=== PATIENT | female | born 1970 | race Caucasian/White ===

== ENCOUNTER 2017-03-06 06:13 | Observation (INO) ==
[2017-03-06 07:13] LABS: Basophils % 0.6 %; Eosinophils # 0.1 K/mcL (0.0-0.6); Eosinophils % 1.2 %; Hematocrit 40.4 % (35.3-44.9); Hemoglobin 13.4 g/dL (11.5-15.4); Immature Granulocytes % 0.6 % (0-4); Lymphocytes # 2.2 K/mcL (0.6-4.6); Lymphocytes % 32.5 %; Mean Corpuscular HGB Conc 33.2 g/dL (31.6-35.5); Mean Corpuscular Hemoglobin 31.8 pg (28.0-33.3); Mean Corpuscular Volume 95.7 fL (83.0-100.0); Mean Platelet Volume 11.4 fL (9.4-12.4); Monocytes # 0.6 K/mcL (0.0-1.3); Monocytes % 8.2 %; Neutrophils # 3.9 K/mcL (1.6-8.9); Platelet Count 185 K/mcL (140-400); Red Blood Count 4.22 M/mcL (3.82-4.97); Red Cell Distribution Width 12.1 % (11.5-14.5); Segmented Neutrophils % 56.9 %
[2017-03-06 07:14] LABS: Alanine Aminotransferase 15 Units/L (0-55); Albumin 4.1 g/dL (3.5-5.0); Albumin/Globulin Ratio 1.1 (1.1-2.2); Alkaline Phosphatase 85 Units/L (38-126); Aspartate Amino Transferase 18 Units/L (5-34); BUN/Creatinine Ratio 17 (6-26); Bilirubin,Direct 0.2 mg/dL (0.0-0.5); Bilirubin,Indirect 0.4 mg/dL (0.0-1.2); Bilirubin,Total 0.6 mg/dL (0.2-1.2); Blood Urea Nitrogen 14 mg/dL (7-20); Calcium 9.2 mg/dL (8.6-10.8); Carbon Dioxide 25 mEq/L (19-29); Chloride 106 mEq/L (98-109); Globulin 3.8 g/dL (2.4-3.5); Glucose 156 mg/dL (70-99); Lipase 30 Units/L (8-78); Osmolality,Calculated 292 (280-300); Potassium 3.9 mEq/L (3.5-4.5); Sodium 139 mEq/L (136-145); Total Protein 7.9 g/dL (6.0-8.3); eGFR For African Americans > 60 (> 60); eGFR For Non-African Americans > 60 (> 60)
[2017-03-06] MEDS ORDERED: Ondansetron 4 MG/2 ML VIAL IVP ONE (07:30)
[2017-03-06] MEDS ORDERED: Ketorolac 30 MG/ML VIAL IVP ONE (07:30)
[2017-03-06] MEDS ORDERED: 0.9 % Sodium Chloride 1,000 ML IVC ONE (07:30)
[2017-03-06 08:09] LABS: Bilirubin,Urine Small (Negative); Blood,Urine Large (Negative); Clarity,Urine Cloudy (Clear); Color,Urine Dark Yellow (Yellow); Glucose,Urine (UA) Normal (Normal); Ketones,Urine Trace mg/dL (Negative); Leukocyte Esterase,Urine Negative (Negative); Nitrite,Urine Negative (Negative); Protein,Urine 30 mg/dL (Neg-Trace); Urobilinogen,Urine Normal (Normal)
[2017-03-06 08:12] LABS: Bacteria,Urine None Seen per hpf (None-Few); Hyaline Casts,Urine None Seen per lpf (None-Few); RBC,Urine 0-3 per hpf (0-3); Squamous Epithelial Cell,Urine Many per lpf (None-Few); WBC,Urine 0-3 per hpf (0-3)
[2017-03-06] MEDS ORDERED: *HR* HYDROcodone/Acet 5/325 mg TABLET PO ONE (10:16)
--- NOTE | 2017-03-06 11:50 | Emergency Department Note ---
Disposition Clinical Impression: Kidney stone Disposition: Admitted As Inpatient Condition: Fair Instructions: Renal Colic (ED), Kidney Stones (ED) Referrals: Karolina Bell CNP [Primary Care Provider] - Forms: Work/School Release, ED Satisfaction Letter Time of Disposition: 12:12 Abdominal Pain HPI - General Chief Complaint: ED Abdominal Pain Stated Complaint: kidney stone Time Seen by Provider: 03/06/17 07:28 Source: patient Mode of arrival: private vehicle Limitations: no limitations Nursing Notes Reviewed: Yes Vital Signs Reviewed: Yes - History of Present Illness HPI Narrative: 46-year-old female patient presents to the emergency department with complaint of left-sided flank and abdominal pain. Patient states that history of numerous kidney stones in the past and this feels similar. She does describe some urinary frequency, but denies any fever, chills, nausea or vomiting. She denies any chest pain or shortness of breath. She has no additional complaints. Pt Subjective Complaint: abdominal pain, flank pain Onset (ago): hour(s) Consistency: constant, Worsening Location: L flank Pain Severity: severe Pain Scale: 7 Quality: aching, sharp Radiation: L flank Migration to: no migration Improves with: nothing Worsens with: nothing - Related Data Previous Rx's Medication Instructions Recorded TraMADol [Ultram] 50 mg PO TID PRN #5 tablet 07/03/15 HYDROcodone/Acet 5/325 mg [[place] 1 tab PO Q6H PRN #16 tab 07/27/16 5-325 mg] Ondansetron ODT [Zofran ODT] 4 mg SL Q6HR PRN #10 tab.rapdis 07/27/16 Allergies Allergy/AdvReac Type Severity Reaction Status Date / Time No Known Drug Allergies Allergy See Verified 07/27/16 05:58 Comments All systems ED: reviewed and negative except as stated. Constitutional: Denies: fever, chills Cardiovascular: Denies: chest pain Respiratory: Denies: cough, dyspnea, wheezes Gastrointestinal: Reports: abdominal pain. 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 Absent: respiratory distress - Cardiovascular Cardiovascular exam: Present: regular rate, normal rhythm, normal heart sounds - Abdominal Exam Abdominal exam: Present: soft, Non-Tender, normal bowel sounds. Absent: distention, guarding, rebound, rigidity - Extremities Exam Extremities exam: Present: normal inspection, full ROM. Absent: tenderness, pedal edema - Expanded Lower Extremity Exam Gait: observed and normal - Back Exam Back exam: Present: CVA tenderness (L) - Neurological Exam Neurological exam: Present: alert, oriented X3 - Psychiatric Psychiatric exam: Present: normal affect, normal mood - Skin Skin exam: Present: warm, dry, intact, normal color Course - Consultations Consultation #1: Dr. Magana accepts patient for observation. Time: 11:50 Vital Signs Temperature 97.4 F L 03/06/17 06:13 Pulse Rate 74 03/06/17 06:13 Respiratory Rate 18 03/06/17 06:13 Blood Pressure 145/85 03/06/17 06:13 O2 Sat by Pulse Oximetry 99 03/06/17 06:13 Temperature 97.4 F L 03/06/17 06:13 Pulse Rate 50 03/06/17 09:43 Respiratory Rate 18 03/06/17 09:43 Blood Pressure 149/89 03/06/17 09:43 O2 Sat by Pulse Oximetry 98 03/06/17 09:43 Oxygen Delivery Oxygen Delivery Room Air Abdominal Pain - Lab Data Result diagrams: 03/06/17 06:52 03/06/17 06:52 Lab Results 03/06/17 03/06/17 03/06/17 Range/Units 06:52 06:52 07:58 WBC 6.8 (4.3-11.1) K/mcL RBC 4.22 (3.82-4.97) M/mcL Hgb 13.4 (11.5-15.4) g/dL Hct 40.4 (35.3-44.9) % MCV 95.7 (83.0-100.0) fL MCH 31.8 (28.0-33.3) pg MCHC 33.2 (31.6-35.5) g/dL RDW 12.1 (11.5-14.5) % Plt Count 185 (140-400) K/mcL MPV 11.4 (9.4-12.4) fL Immature Gran % 0.6 (0-4) % Seg Neutrophils % 56.9 % Lymphocytes % 32.5 % Monocytes % 8.2 % Eosinophils % 1.2 % Basophils % 0.6 % Neutrophils # 3.9 (1.6-8.9) K/mcL Lymphocytes # 2.2 (0.6-4.6) K/mcL Monocytes # 0.6 (0.0-1.3) K/mcL Eosinophils # 0.1 (0.0-0.6) K/mcL Basophils # 0.0 (0.0-0.2) K/mcL Sodium 139 (136-145) mEq/L Potassium 3.9 (3.5-4.5) mEq/L Chloride 106 (98-109) mEq/L Carbon Dioxide 25 (19-29) mEq/L BUN 14 (7-20) mg/dL Creatinine 0.84 (0.57-1.11) mg/dL Est GFR ( Amer) > 60 (> 60) Est GFR (Non-Af Amer) > 60 (> 60) BUN/Creatinine Ratio 17 (6-26) Glucose 156 H (70-99) mg/dL Calculated Osmolality 292 (280-300) Calcium 9.2 (8.6-10.8) mg/dL Total Bilirubin 0.6 (0.2-1.2) mg/dL Direct Bilirubin 0.2 (0.0-0.5) mg/dL Indirect Bilirubin 0.4 (0.0-1.2) mg/dL AST 18 (5-34) Units/L ALT 15 (0-55) Units/L Alkaline Phosphatase 85 (38-126) Units/L Serum Total Protein 7.9 (6.0-8.3) g/dL Albumin 4.1 (3.5-5.0) g/dL Globulin 3.8 H (2.4-3.5) g/dL Albumin/Globulin Ratio 1.1 (1.1-2.2) Lipase 30 (8-78) Units/L Urine Color Dark Yellow (Yellow) Urine Clarity Cloudy A (Clear) Urine pH 5.0 (5.0-8.0) pH Units Ur Specific [place] 1.030 H (1.010-1.025) Urine Protein 30 H (Neg-Trace) mg/dL Urine Glucose (UA) Normal (Normal) mg/dL Urine Ketones Trace H (Negative) mg/dL Urine Blood Large H (Negative) Urine Nitrite Negative (Negative) Urine Bilirubin Small H (Negative) Urine Urobilinogen Normal (Normal) mg/dL Ur Leukocyte Esterase Negative (Negative) Urine Microscopic RBC 0-3 (0-3) per hpf Urine Microscopic WBC 0-3 (0-3) per hpf Ur Squamous Epith Cells Many H (None-Few) per lpf Urine Bacteria None Seen (None-Few) per hpf Hyaline Casts None Seen (None-Few) per lpf Ur Culture Indicated? NO (NO)
[2017-03-06] MEDS ORDERED: *HR* OxyCODONE Immed Rel 5 MG TABLET PO PRN (13:44)
[2017-03-06] MEDS ORDERED: Acetaminophen 325 MG TABLET PO PRN (13:44)
[2017-03-06] MEDS ORDERED: Naloxone 0.4 MG/ML INJ IVP PRN (13:44)
[2017-03-06] MEDS ORDERED: Ondansetron 4 MG/2 ML VIAL IVP PRN (13:44)
--- NOTE | 2017-03-06 13:49 | Urology - Consult Note ---
Date of Encounter: 03/06/17 Time of Encounter: 13:47 - Assessment and Plan (1) Kidney stone Current Visit: Yes Status: Acute Assessment and plan: 46-year-old woman with a left distal ureteral stone, approximately 8 mm. We'll admit her for pain control. Given the size of the stone, I do not think it'll pass easily. I recommend proceeding with a left ureteroscopy, laser lithotripsy , and stent placement. She was informed of the risks of the procedure including but not limited to bleeding, infection, injury to other structures, need for further procedures, stent irritation, incomplete fragmentation, ureteral perforation, need for nephrostomy tube, need for open repair, risks unforeseen, and the risk of anesthesia. She is willing to proceed. I will add her onto the OR schedule for tomorrow. I will order levofloxacin refrigeration supervisor to the operating room tomorrow morning. She can have a regular diet today. Nothing by mouth past midnight. Urology CN:HPI Consult date: 03/06/17 Reason for consult Urology: Other (Left ureteral stone) History of present illness: 46-year-old woman presents with a 2 day history of left flank pain. It is located in the left flank and radiates to the groin. The pain has been severe. She has a known history of kidney stones. The pain led to nausea with emesis. Pain medication is helped with it. She was working today and began to feel worse. She went to the emergency room. A CT scan showed an 8 mm distal left ureteral stone. There was also multiple stones within the left kidney. She has been admitted for pain control. Past Med Surg Social Fam HX - Past Medical History Medical history: kidney stones Psychiatric history: no psych history - Past Surgical History Surgical History: cholecystectomy, hysterectomy - Social History Smoking Status: Never smoker Smokeless Tobacco Status: No Alcohol use: none Drug use: none - Family History Mother Hx Family Genitourinary Disorders: No Medications and Allergies No Known Home Drugs 03/06/17 [History] Allergies No Known Drug Allergies Allergy (Verified 07/27/16 05:58) See Comments Review of Systems - Constitutional no chills, no fever(s) - EENT Nose, mouth and throat: no dizziness - Cardiovascular no chest pain - Respiratory no dyspnea - Gastrointestinal nausea, vomiting - Genitourinary Genitourinary: flank pain, no hematuria - Musculoskeletal no back pain - Integumentary no erythema, no rash - Neurological no weakness - Psychiatric no suicidal ideation - Hematologic/Lymphatic no easy bleeding - Allergic/Immunologic no wheezing Exam Initial Vital Signs Temp Pulse Resp BP Pulse Ox 97.4 F L 74 18 145/85 99 03/06/17 06:13 03/06/17 06:13 03/06/17 06:13 03/06/17 06:13 03/06/17 06:13 - General physical appearance Present: well developed, well nourished, no distress - Eyes Absent: icteric - ENT Present: normal nares - Neck Present: trachea midline - Respiratory Present: normal respiratory effort - Cardiovascular Cardiovascular exam IM: RRR - Abdomen Abdomen: Present: soft Urology Results - Labs 03/06/17 06:52 03/06/17 06:52 Abnormal lab results Glucose 156 mg/dL (70-99) H 03/06/17 06:52 Globulin 3.8 g/dL (2.4-3.5) H 03/06/17 06:52 Urine Clarity Cloudy (Clear) A 03/06/17 07:58 Ur Specific [place] 1.030 (1.010-1.025) H 03/06/17 07:58 Urine Protein 30 mg/dL (Neg-Trace) H 03/06/17 07:58 Urine Ketones Trace mg/dL (Negative) H 03/06/17 07:58 Urine Blood Large (Negative) H 03/06/17 07:58 Urine Bilirubin Small (Negative) H 03/06/17 07:58 Ur Squamous Epith Cells Many per lpf (None-Few) H 03/06/17 07:58 All other labs normal. - Imaging CT scan - abdomen: report reviewed, image reviewed CT scan - pelvis: report reviewed, image reviewed Consult Discharge Plan - Plan Instructions: Kidney Stones (ED), Renal Colic (ED) Referrals: Karolina Bell, [employer]BER [Primary Care Provider] -
[2017-03-06] MEDS: 0.9 % Sodium Chloride 1,000 ML IVC SCH ×2 (15:06→23:22)
[2017-03-06] MEDS: *HR* HYDROmorphone (PF) 1 MG/ML SYRINGE IVP PRN ×3 (15:16→23:22)
[2017-03-07] MEDS: *HR* HYDROmorphone (PF) 1 MG/ML SYRINGE IVP PRN ×3 (01:58→07:03)
[2017-03-07] MEDS ORDERED: Levofloxacin 500 MG/100 ML 500 MG/100 ML BAG IVPB SCH (06:00)
--- NOTE | 2017-03-07 07:20 | Urology Progress Note ---
Date of Encounter: 03/07/17 Time of Encounter: 07:18 - Assessment and Plan (1) Kidney stone Current Visit: Yes Status: Acute Assessment and plan: 46 year old woman with a left distal ureteral stone. Plan for left ureteroscopy , laser lithotripsy, and stent placement today. She is aware of all risks. Progress Note Narrative: Still with some pain this morning. She denies stone passage. She would like to have her stone treated today. Objective Initial Vital Signs Temp Pulse Resp BP Pulse Ox 97.4 F L 74 18 145/85 99 03/06/17 06:13 03/06/17 06:13 03/06/17 06:13 03/06/17 06:13 03/06/17 06:13 - General physical appearance Present: well developed, well nourished, no distress - Respiratory Present: normal respiratory effort - Abdomen Present: soft - Labs 03/06/17 06:52 03/06/17 06:52 Consult Discharge Plan - Plan Instructions: Kidney Stones (ED), Renal Colic (ED) Referrals: Karolina Bell SPOT WASHER [Primary Care Provider] -
--- NOTE | 2017-03-07 08:20 | Anesthesia Evaluation PreOp ---
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 Any Significant HX Other Medical History: Renal (stones) Anesthesia History: Past Anesthesia (tubal, cholecystectomy, hysterectomy), Problems (desaturation with most pain medications - does better with dilaudid than other pain medication) Alcohol Use: none Drug use: none Medications and Allergies No Known Home Drugs 03/06/17 [History] Allergies No Known Drug Allergies Allergy (Verified 07/27/16 05:58) See Comments - Meds/Allergy Pre-op Review Medications Reviewed: Yes Allergies Reviewed: Yes Beta Blockers on Current Med List: No Anesthesia Results - Labs 03/06/17 06:52 03/06/17 06:52 Anesthesia Exam Last Vital Signs Temp 97.7 F 03/07/17 06:28 Pulse 49 03/07/17 06:28 Resp 16 03/07/17 06:28 BP 136/88 03/07/17 06:28 Pulse Ox 99 03/07/17 06:28 Weight: 94 kg NPO (# of Hours): >> 8 hrs - HEENT Pupil (Motor): Pupils equal, EOMI Mallampati: II Teeth: Normal Oral Opening: Greater than 3 - AUTOMOTIVE PROFESSIONAL LOC: Oriented AUTOMOTIVE PROFESSIONAL Motor: Normal RUE, Normal LUE, Normal RLE, Normal LLE, Normal Face - Cardiac Rhythm: Regular Murmur: None - Pulmonary Breath Sounds: bilateral Clear Respiratory Effort: Symmetrical Anesthesia Assess/Plan ASA Score: 1 Modified [place] Scale for Level of Consciousness: Cooperative, oriented, and tranquil Anesthetic Plan: General Monitoring Plan: Standard Monitors Recovery Plan: PACU
--- NOTE | 2017-03-07 08:27 | Operative Note ---
Date of procedure: 03/07/17 Pre-op diagnosis: Left ureteral stone Post-op diagnosis: same Procedure: Distal left ureteroscopy, laser lithotripsy, basket stone extraction, and stent placement. Staged left proximal left ureteroscopy, laser lithotripsy, basket stone extraction. Implants: 6 [place] x 24 cm JJ stent. Complications: none Anesthesia: KAREN Surgeon: Pino Magana Estimated blood loss (cc): 1 Specimen: left ureteral stone Condition: stable Disposition: PACU Procedure in Detail: Indications: Lynn is a 46-year-old female who presents with left flank pain. A CT scan showed an 8 mm distal left ureteral stone with some left renal stones additional. She was admitted for pain control. She was unable to pass her stone. She elected to undergo a left ureteroscopy, laser lithotripsy, and stent placement. She was aware of the risks of the procedure including but not limited to bleeding, infection, injury to other structures, need for further procedures, need for stent, stent irritation, incomplete treatment, and the risk of anesthesia. She is willing to proceed. Procedure: After informed consent was obtained the patient was brought back to the operating room and placed in supine position. A time out was performed. General anesthesia was administered and an LMA was placed. She was then placed in the lithotomy position. She was prepped and draped in the usual sterile fashion. Cystoscopy was performed. The anterior urethra was normal. There was no evidence of bladder tumors. The ureteral orifices were in the normal orthotopic position. There was no duplication of the ureteral orifices. The zip wire was placed in the left ureteral orifice, and it was brought into the kidney under fluoroscopic guidance. The ureter was dilated using 8/10 [place] ureteral dilator. I then advanced the semirigid ureteroscope into the ureter. The stone was fragmented using the 200 n fiber. The stone fragments were then basket extracted. Once the stones were extracted and then placed a sensor wire up the ureter. An 11 [place]/13 [place] by 28 cm ureteral access sheath was then placed. The flexible ureteroscope was then placed into the kidney. Stones were seen in the upper pole, mid pole, and lower pole calyx. These were fragmented using the 200 n laser fiber. The stone fragments were basket extracted. Once all the stones were removed I placed a stent. A 6 [place] by 24cm JJ stent was then placed with good curl seen in the kidney and the bladder. The dangle string was left intact and tucked into the vagina. The bladder was drained. The patient was then awakened from general anesthesia and brought to recovery room in good condition. All sponge, needle, and instrument counts were correct
[2017-03-07] MEDS ORDERED: Ketorolac 30 MG/ML VIAL ONE (08:35)
[2017-03-07] MEDS ORDERED: Ondansetron 4 MG/2 ML VIAL ONE (08:35)
[2017-03-07] MEDS ORDERED: Dexamethasone 4 MG/ML VIAL ONE (08:35)
[2017-03-07] MEDS ORDERED: *HR* Propofol 200 MG/20 ML VIAL IVP ONE (08:36)
[2017-03-07] MEDS ORDERED: *HR* FentaNYL (PF) 100 MCG/2 ML VIAL ONE (08:36)
[2017-03-07] MEDS ORDERED: *HR* Midazolam HCl 2 MG/2 ML VIAL ONE (08:36)
[2017-03-07] MEDS ORDERED: Lidocaine -MPF 2% 2 ML VIAL ONE (08:36)
[2017-03-07] MEDS ORDERED: *HR* HYDROmorphone (PF) 1 MG/ML SYRINGE IVP PRN ×2 (08:37→10:10)
[2017-03-07] MEDS ORDERED: *HR* Promethazine 25 MG/ML VIAL IVP PRN (08:37)
[2017-03-07] MEDS ORDERED: Ondansetron 4 MG/2 ML VIAL IVP ONE (08:37)
--- NOTE | 2017-03-07 09:28 | Discharge Summary ---
Date of Encounter: 03/07/17 Time of Encounter: 09:26 - Discharge Diagnosis (1) Kidney stone Priority: Primary Status: Acute - Discharge Medications Prescriptions: Docusate [Colace] 100 mg PO BID #60 capsule Oxycodone HCl/Acetaminophen [Percocet 5-325 mg Tablet] 1 each PO Q4H PRN #25 tablet PRN Reason: Pain Phenazopyridine HCl [Pyridium] 200 mg PO TIDAC #12 tab Home Medications: Docusate [Colace] 100 mg PO BID #60 capsule 03/07/17 [Rx] Oxycodone HCl/Acetaminophen [Percocet 5-325 mg Tablet] 1 each PO Q4H PRN #25 tablet 03/07/17 [Rx] Phenazopyridine HCl [Pyridium] 200 mg PO TIDAC #12 tab 03/07/17 [Rx] Allergies/Adverse Reactions: Allergies No Known Drug Allergies Allergy (Verified 07/27/16 05:58) See Comments Labs on day of discharge: Labs from last 24 hours 03/07/17 03/06/17 03/06/17 07:11 21:02 16:38 POC Glucose 103 H 95 H 114 H Date of admission: 03/06/17 11:41 Primary care physician: Karolina Bell, Discharging clinician: Pino Magana (t\) Anticipated date of discharge: 03/07/17 - Patient Status Disposition: Home, Self-Care Condition: Fair Functional capacity at discharge: independent ambulation Overall status at discharge: patient is progressing back to baseline - Discharge Instructions Instructions: Kidney Stones (ED), Renal Colic (ED) Follow Up With: Pino Magana MD [Partnered Physician] - (in 2 - 4 weeks with a kub) Forms: ED Satisfaction Letter, Work/School Release Additional Instructions: 1. The patient can remove her stent on Tuesday03/11/2017 by pulling on the string. 2. She should expect to feel flank pain with voiding. 3. The patient should call for any fevers, chills, nausea, emesis, or uncontrolled pain. 4. Please provide a work excuse if necessary for up to 1 week off. - Diet and Activity Activity: increase activity as tolerated Diet: advance to your usual diet - Hospital Course Hospital course: Ms. Khan is a 46 year old female who was admitted for a left distal ureteral stone. On March 07 2017 she underwent a distal left ureteroscopy with laser lithotripsy and stent placement. This was followed by a staged left proximal ureteroscopy, laser lithotripsy, and basket stone extraction. She did well after the surgery and was discharged home later that day. - Time Spent with Patient Total time spent providing and/or coordinating discharge services: Less than 30 minutes Exam Initial Vital Signs Temp Pulse Resp BP Pulse Ox 97.4 F L 74 18 145/85 99 03/06/17 06:13 03/06/17 06:13 03/06/17 06:13 03/06/17 06:13 03/06/17 06:13 - General physical appearance Present: well developed, well nourished, no distress - Eyes Absent: icteric - ENT Present: normal nares - Neck Present: trachea midline - Respiratory Present: normal respiratory effort - Cardiovascular Cardiovascular exam IM: RRR - Abdomen Abdomen: Present: soft
[2017-03-07] MEDS ORDERED: Acetaminophen 325 MG TABLET PO PRN (10:10)
[2017-03-07] MEDS ORDERED: Naloxone 0.4 MG/ML INJ IVP PRN (10:10)
[2017-03-07] MEDS ORDERED: *HR* OxyCODONE Immed Rel 5 MG TABLET PO PRN (10:10)
[2017-03-07] MEDS ORDERED: 0.9 % Sodium Chloride 1,000 ML IVC SCH (10:10)
[2017-03-07] MEDS ORDERED: Ondansetron 4 MG/2 ML VIAL IVP PRN (10:10)
--- NOTE | 2017-03-07 10:22 | Anesthesia Evaluation Post Op ---
Date of Encounter: 03/07/17 Time of Encounter: 09:55 - Vital Signs Vital Signs: Vital Signs/O2 Sat/Glucose, Most Current Temp Pulse Resp BP Pulse Ox 03/07/17 09:56 97.6 F 54 16 126/72 100 03/07/17 09:47 63 16 128/81 99 03/07/17 09:37 59 16 126/76 97 03/07/17 09:27 97.8 F 78 16 120/70 98 03/07/17 06:28 97.7 F 49 16 136/88 99 - Lungs Lungs: Clear Ascult./Percussion - Airway Airway: Non-obstructed - Cardiovascular Regular Rate - Mental Status Mental Status: Alert & Oriented, Answers Appropriately - Pain Pain Scale: 0 Pain Scale used: Numeric (1 - 10) - Nausea Vomiting Nausea Vomiting: Not Present - Hydration Hydration: Ice chips, Able to void - Discharge PostOp Status: Transfer Patient to floor Anes Supervising Prov Stmt: Pt seen/evaluated, VSS and pt has met criteria for discharge to floor. - MD Rajani
[2017-03-07 11:19] VITALS: BP 131/78
== END 2017-03-07 13:17 | disposition home or self-care (01) ==
LOC: 3ANU 06:13 → EMEROO 06:13 → 3ANU 12:40
PROVIDERS: ADMIT Nurse Practitioner Family; ATTEND Family Medicine

== ENCOUNTER 2019-03-05 14:16 | Observation (INO) ==
[2019-03-05 14:53] LABS: Basophils % 0.3 %; Eosinophils # 0.1 K/mcL (0.0-0.6); Eosinophils % 0.8 %; Hematocrit 39.8 % (35.3-44.9); Hemoglobin 13.1 g/dL (11.5-15.4); Immature Granulocytes % 0.4 % (0-4); Lymphocytes # 0.8 K/mcL (0.6-4.6); Lymphocytes % 6.6 %; Mean Corpuscular HGB Conc 32.9 g/dL (31.6-35.5); Mean Corpuscular Hemoglobin 32.4 pg (28.0-33.3); Mean Corpuscular Volume 98.5 fL (83.0-100.0); Mean Platelet Volume 11.6 fL (9.4-12.4); Monocytes # 0.9 K/mcL (0.0-1.3); Monocytes % 7.5 %; Neutrophils # 9.5 K/mcL (1.6-8.9); Platelet Count 169 K/mcL (140-400); Red Blood Count 4.04 M/mcL (3.82-4.97); Red Cell Distribution Width 12.2 % (11.5-14.5); Segmented Neutrophils % 84.4 %; White Blood Count 11.3 K/mcL (4.3-11.1)
[2019-03-05 14:57] LABS: Bilirubin,Urine Negative (Negative); Blood,Urine Large (Negative); Clarity,Urine Turbid (Clear); Color,Urine Yellow (Yellow); Glucose,Urine (UA) Normal (Normal); Ketones,Urine Trace mg/dL (Negative); Leukocyte Esterase,Urine Large (Negative); Nitrite,Urine Positive (Negative); Protein,Urine 100 mg/dL (Neg-Trace); Specific Gravity,Urine 1.017 (1.010-1.025); Urobilinogen,Urine Normal (Normal)
[2019-03-05 15:00] LABS: Bacteria,Urine Many per hpf (None-Few); Hyaline Casts,Urine None Seen per lpf (None-Few); Squamous Epithelial Cell,Urine Many per lpf (None-Few); WBC,Urine TNTC per hpf (0-3)
[2019-03-05 15:11] LABS: BUN/Creatinine Ratio 18 (6-26); Blood Urea Nitrogen 20 mg/dL (6-20); Calcium 9.4 mg/dL (8.6-10.3); Carbon Dioxide 25 mEq/L (23-29); Chloride 104 mEq/L (98-107); Glucose 121 mg/dL (70-105); Osmolality,Calculated 290 (280-300); Potassium 4.1 mEq/L (3.5-5.1); Sodium 138 mEq/L (136-145); eGFR For African Americans > 60 (> 60); eGFR For Non-African Americans 52 (> 60)
[2019-03-05 15:20] LABS: RBC,Urine 30-50 per hpf (0-3)
[2019-03-05] MEDS ORDERED: *HR* OxyCODONE/APAP 5/325 TABLET PO ONE (16:38)
[2019-03-05] MEDS ORDERED: Ondansetron ODT 4 MG TAB.RAPDIS SL ONE (16:38)
--- NOTE | 2019-03-05 16:43 | Emergency Department Note ---
Disposition Clinical Impression: Staghorn renal calculus, Flank pain UTI (urinary tract infection) Qualifiers: Urinary tract infection type: acute cystitis Hematuria presence: with hematuria Qualified Code(s): N30.01 - Acute cystitis with hematuria Disposition: Admitted As Inpatient Condition: Fair Time of Disposition: 17:00 Abdominal Pain HPI - General Chief Complaint: ED Abdominal Pain Stated Complaint: kidney stone Time Seen by Provider: 03/05/19 16:13 Source: patient - History of Present Illness HPI Narrative: 48-year-old female with a past medical history of a "parathyroid problem" for which she had her parathyroids removed 2 years ago. Patient states that up until that time she had frequent kidney stones, once necessitating operative removal of an 8 mm stone. She states that yesterday she noted some dysuria, urinary frequency, and suprapubic abdominal pain which she thought was a UTI. She contacted her doctor who did not get back to her at the time. This morning at 4 AM the patient woke up with right flank pain that radiated over to the mid back which reminded her of kidney stone pain. She says it is deep and aching in nature. She also notes that there was some blood in her urine when she wiped, but none in her underwear and none in the toilet bowl. Pain Scale: 8 - Related Data Home Medications Medication Instructions Recorded Confirmed Cholecalciferol (D-3) [Vitamin D] 5,000 unit PO DAILY 08/29/18 03/06/19 Allergies Allergy/AdvReac Type Severity Reaction Status Date / Time chocolate flavor AdvReac See Verified 03/06/19 10:55 Comments Review of Systems: In addition to that documented in the HPI above, the additional ROS was obtained: Constitutional: Denies fevers or chills Eyes: Denies vision changes ENMT: Denies sore throat CV: Denies chest pain Resp: Denies SOB GI: Denies vomiting or diarrhea Reports nausea : Reports painful urination, hematuria, right sided flank pain MSK: Denies recent trauma Skin: Denies new rashes Neuro: Denies new numbness or tingling or weakness Endocrine: Denies unexpected weight loss Heme: Denies bleeding disorders Abdominal Pain PMH - Past Medical History Medical history: Reports: kidney stones, thyroid disease Female Surgical History: Reports: cholecystectomy, hysterectomy, other 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 No acute distress. Looks like she's in pain. Well developed, well nourished. Head: atraumatic, normocephalic. ENT: No conjunctival injection, no scleral icterus. PERRLA. EOMI. Oropharynx non- erythematous. mucous membranes moist. Neuro: No focal deficits, no speech deficit, no facial droop, mentating well. BUE/BLE Str 5/5. Pulm: Lungs CTAB A/P. No wheezes, rales, ronchi. Cardio: RRR no m/r/g. Chest not tender to palpation. Abd: Soft, non-distended. Normoactive bowel sounds. Tender to palpation in suprapubic area. No guarding. Non rigid. Right flank pain. Extremities: Radial pulses 2+ josias, dorsalis pedis/posterior tibialis 2+ josias. No LE edema. No cyanosis, clubbing. Skin: warm, dry, intact. No rashes. Psych: Appropriate mood and affect. Answers questions appropriately. Cooperative with exam. - General Limitations: no limitations General appearance: alert, in no apparent distress Course - Consultations Consultation #1: Spoke with Dr. Rivers who states that we should admit the patient and they would see her in consult the next day. He did not make any specific antibiotic recommendations. Time: 17:00 Vital Signs Temperature 98.1 F 03/05/19 14:24 Pulse Rate 88 03/05/19 14:24 Respiratory Rate 15 03/05/19 14:24 Blood Pressure 157/100 03/05/19 14:24 O2 Sat by Pulse Oximetry 98 03/05/19 14:24 Temperature 98.3 F 03/05/19 23:08 Pulse Rate 64 03/05/19 23:08 Respiratory Rate 17 03/05/19 23:08 Blood Pressure 133/78 03/05/19 23:08 O2 Sat by Pulse Oximetry 96 03/05/19 23:08 Oxygen Delivery Oxygen Delivery Room Air Procedures - Ultrasound-Other Narrative: Bedside ultrasound was performed by ri. Order was placed through [employer] and pulled up on the bedside ultrasound paulette chaudhary. Study was ended and images were saved. Patient was draped for comfort and modesty. Phased array probe was used to identify the right kidney which did not demonstrate hydronephrosis, but there may have been fluid surrounding the kidney. Study was ended. Abdominal Pain - MDM Narrative Medical decision making narrative: 48-year-old female with a past medical history of frequent kidney stones up until she had a partial parathyroidectomy now reports with 2 days of dysuria and frequency and one day of right flank pain. We will obtain CT of the abdomen and pelvis as bedside ultrasound was inconclusive. We will order UA, CBC, BMP. CT showed struvite stones in the right renal pelvis as well as hydroureter on the right side without any identifiable stone in the ureter. Patient's blood work revealed a leukocytosis with neutrophilic predominance. Patient was treated while in the department with antibiotics to cover struvite stones. Urology was consult did please see course note for full details of the consult. Patient was admitted to the hospitalist Dr. Whitaker who agreed to accept the patient to his service. Results of the workup including any imaging and/or labwork was shared with the patient at bedside. Patient was given an opportunity to ask questions at bedside and all of their concerns were addressed. Patient verbalized understanding and agreement with plan of care. Pt remained stable while in the department. - Medical Records Medical records reviewed: Yes I reviewed the patient's medical records. - Lab Data Lab results reviewed: Yes I reviewed the patient's lab results. Result diagrams: 03/06/19 05:06 03/06/19 05:06 Lab Results 03/05/19 03/05/19 03/05/19 Range/Units 14:08 14:37 14:37 WBC 11.3 H (4.3-11.1) K/mcL RBC 4.04 (3.82-4.97) M/mcL Hgb 13.1 (11.5-15.4) g/dL Hct 39.8 (35.3-44.9) % MCV 98.5 (83.0-100.0) fL MCH 32.4 (28.0-33.3) pg MCHC 32.9 (31.6-35.5) g/dL RDW 12.2 (11.5-14.5) % Plt Count 169 (140-400) K/mcL MPV 11.6 (9.4-12.4) fL Immature Gran % 0.4 (0-4) % Seg Neutrophils % 84.4 % Lymphocytes % 6.6 % Monocytes % 7.5 % Eosinophils % 0.8 % Basophils % 0.3 % Neutrophils # 9.5 H (1.6-8.9) K/mcL Lymphocytes # 0.8 (0.6-4.6) K/mcL Monocytes # 0.9 (0.0-1.3) K/mcL Eosinophils # 0.1 (0.0-0.6) K/mcL Basophils # 0.0 (0.0-0.2) K/mcL Sodium 138 (136-145) mEq/L Potassium 4.1 (3.5-5.1) mEq/L Chloride 104 (98-107) mEq/L Carbon Dioxide 25 (23-29) mEq/L BUN 20 (6-20) mg/dL Creatinine 1.12 (0.60-1.20) mg/dL Est GFR ( Amer) > 60 (> 60) Est GFR (Non-Af Amer) 52 L (> 60) BUN/Creatinine Ratio 18 (6-26) Glucose 121 H (70-105) mg/dL Calculated Osmolality 290 (280-300) Calcium 9.4 (8.6-10.3) mg/dL Urine Color Yellow (Yellow) Urine Clarity Turbid A (Clear) Urine pH 6.0 (5.0-8.0) pH Units Ur Specific [place] 1.017 (1.010-1.025) Urine Protein 100 H (Neg-Trace) mg/dL Urine Glucose (UA) Normal (Normal) mg/dL Urine Ketones Trace H (Negative) mg/dL Urine Blood Large H (Negative) Urine Nitrite Positive A (Negative) Urine Bilirubin Negative (Negative) Urine Urobilinogen Normal (Normal) mg/dL Ur Leukocyte Esterase Large H (Negative) Urine Microscopic RBC 30-50 H (0-3) per hpf Urine Microscopic WBC TNTC H (0-3) per hpf Ur Squamous Epith Cells Many H (None-Few) per lpf Urine Bacteria Many H (None-Few) per hpf Hyaline Casts None Seen (None-Few) per lpf Ur Culture Indicated? YES A (NO) - Radiology Data Radiology results reviewed: Yes I reviewed the patient's radiology results. Abdomen/Pelvis CT 03/05/19 16:43 IMPRESSION: 1. Bilateral nephrolithiasis. A staghorn type calculus in the right renal pelvis measures 1.2 x 0.5 cm. 2. There is evidence of mild right hydroureter but no evidence of ureteric stones. The urinary bladder demonstrates no evidence of stones or thickening. 3. Normal appendix and gastrointestinal tract. Status post gastric bypass. D/ / 03/05/2019 17:28:26 Rafia Guevara MD / addison Interpreting Provider: Rafia Guevara MD Attestation Statement - Attestation Attestation: I have seen this patient with the resident physician, I have personally evaluated this patient. I had reviewed the chart and document dictation by the resident physician and aM in agreement with the information documented by the resident physician. Please see documentation by the resident physician for complete chart including past medical history, family medical history, review of systems, current history and physical and laboratory and imaging studies. I was present for all procedures, provided direct supervision for all pro cedures, was present for the entirety of all procedures and provided direct guidance during the procedures. Please see documentation by the resident physician for any procedures performed. I have reviewed all interpretations of EKGs, and reviewed all EKGs performed on patient's as well. I have also reviewed reports of imaging as provided by radiology.
[2019-03-05] MEDS ORDERED: levoFLOXacin 750 MG/150 ML 750 MG/150 ML BAG IVPB ONE (18:44)
[2019-03-05] MEDS ORDERED: Ondansetron 4 MG/2 ML VIAL IVP PRN (19:36)
[2019-03-05] MEDS ORDERED: Naloxone 0.4 MG/ML INJ IVP PRN (19:37)
[2019-03-05] MEDS ORDERED: 0.9 % Sodium Chloride 1,000 ML IVC SCH (19:45)
--- NOTE | 2019-03-05 20:06 | Internal Med History&Physical ---
Date of Encounter: 03/05/19 Time of Encounter: 20:05 Internal Medicine - H&P: HPI Chief complaint: right flank pain Admitted From: Home Plans for Post Hospital Care: Home History of present illness: Nanda Khan is a 48 year old woman with a history of primary parathyroidism s/p parathyroidectomy and recurrent kidney stones who has previously undergone left laser lithotripsy, basket stone extraction and stent placement for an 8mm calculus. She presents today to the emergency room with complaints of dysuria, pollkiuria and suprapubic discomfort since yesterday. She then developed right flank pain early this morning radiating from her lumbar region. She also noticed hematuria and complains of some nausea but no vomiting, fever or chills. She reports adopting a keto-based diet for the past 1 year. Vitals: Reviewed General: Well developed white woman lying in bed in NAD, appears uncomfortable w ith some antalgic posturing. Skin: Warm, pale and dry. HEENT: Moist mucous membranes. No conjunctivae pallor. Neck: No lymphadenopathy. No JVD. No carotid bruits. No palpable thyroid. Chest: Normal thoracic expansion. Normal breath sounds. Clear to auscultation. Heart: Normal S1 & S2; rhythmic. No rubs or murmurs. Abdomen: Non-distended, soft and mildly tender to palpation in the right flank. (+) right CVA tenderness. Extremities: No clubbing, cyanosis or edema. No calf tenderness. Normal distal pulses. Neurological: Awake, alert and oriented to person, place and time. No focal deficits. Psych: Affect appropriate. Assessment/Plan 1. Right kidney stone: The patients underlying history of primary hyperthyroidism may have caused this predisposition to causing kidney stones. She takes high dose vitamin D supplements at this time. The stone is large and staghorn in appearance. Will consult urology to assess feasibility on an intervention to relieve the pressure on her kidney and facilitate stone extraction. Keep NPO past midnight. Analgesics and antiemetics as needed. IVF in place. 2. Complicated urinary tract infection: As noted by the dysuric symptoms in combination with a notable urinalysis and findings of nephrolithiasis with a large stone in the right renal pelvis that correlates with her pain. Will continue empiric antibiotics and follow urine culture. 3. Primary hyperparathyroidism: On ergocalciferol with adequate reduction in her PTH and underwent surgical exploration with 1 gland removed and seen to be normal tissue. 24 hour urine showed normal calcium excretion. 4. DVT prophylaxis: Antiembolic stockings. Past Med Surg Social Fam HX - Past Medical History Medical history: kidney stones, thyroid disease Additional medical history: Psoriasis Psychiatric history: no psych history - Past Surgical History Surgical History: cholecystectomy, hysterectomy Additional surgical history: Tubal. parathyroid - Social History Smoking Status: Never smoker Smokeless Tobacco Status: No Alcohol use: none Drug use: none - Family History Father Living Status: Still Living Mother Living Status: Still Living Internal Medicine - H&P: Meds Cholecalciferol (D-3) [Vitamin D] 5,000 unit PO DAILY 08/29/18 [History] Allergy/AdvReac Type Severity Reaction Status Date / Time No Known Drug Allergies Allergy See Verified 03/05/19 14:24 Comments All Systems PM: A 10-system review of systems was performed and is negative for pertinent findings except as documented above in the HPI. - Constitutional Vitals: Temp Pulse Resp BP Pulse Ox 98.3 F 62 17 154/87 95 03/05/19 19:53 03/05/19 19:53 03/05/19 19:53 03/05/19 19:53 03/05/19 19:53 Exam: . Internal Med - H&P Results - Labs CBC & Chem 7: 03/05/19 14:37 03/05/19 14:37 Labs: Short CBC 03/05/19 Range/Units 14:37 WBC 11.3 H (4.3-11.1) K/mcL Hgb 13.1 (11.5-15.4) g/dL Hct 39.8 (35.3-44.9) % Plt Count 169 (140-400) K/mcL Neutrophils # 9.5 H (1.6-8.9) K/mcL BMP 03/05/19 14:37 Sodium 138 Potassium 4.1 Chloride 104 Carbon Dioxide 25 BUN 20 Creatinine 1.12 Glucose 121 H Calcium 9.4 Urine 03/05/19 Range/Units 14:08 Urine Color Yellow (Yellow) Urine Clarity Turbid A (Clear) Urine pH 6.0 (5.0-8.0) pH Units Ur Specific [place] 1.017 (1.010-1.025) Urine Protein 100 H (Neg-Trace) mg/dL Urine Glucose (UA) Normal (Normal) mg/dL - Impressions ITS Impressions Abdomen/Pelvis CT 03/05/19 16:43 IMPRESSION: 1. Bilateral nephrolithiasis. A staghorn type calculus in the right renal pelvis measures 1.2 x 0.5 cm. 2. There is evidence of mild right hydroureter but no evidence of ureteric stones. The urinary bladder demonstrates no evidence of stones or thickening. 3. Normal appendix and gastrointestinal tract. Status post gastric bypass. D/ / 03/05/2019 17:28:26 Rafia Guevara MD / addison Interpreting Provider: Rafia Guevara MD - Time Spent With Patient Total time spent is greater than 50% in coordination of care (as documented) at patient's floor/unit and/or counseling patient:
[2019-03-05] MEDS: Ketorolac 30 MG/ML VIAL IVP PRN (20:37)
--- NOTE | 2019-03-05 21:04 | Emergency Department Note ---
Disposition Clinical Impression: UTI (urinary tract infection), Staghorn renal calculus, Flank pain Disposition: Admitted As Inpatient Condition: Fair Time of Disposition: 20:00 General Adult HPI - General Chief complaint: ED Abdominal Pain Stated complaint: kidney stone Time Seen by Provider: 03/05/19 16:13 Source: patient Limitations: no limitations Nursing Notes Reviewed: Yes Vital Signs Reviewed: Yes - History of Present Illness Pain Scale: 8 - Related Data Home Medications Medication Instructions Recorded Confirmed Cholecalciferol (D-3) [Vitamin D] 5,000 unit PO DAILY 08/29/18 03/05/19 Allergies Allergy/AdvReac Type Severity Reaction Status Date / Time No Known Drug Allergies Allergy See Verified 03/05/19 14:24 Comments Past Medical History - Past Medical History Medical history: Reports: kidney stones, thyroid disease Surgical history: Reports: cholecystectomy, hysterectomy Psychiatric history: Reports: no psych history 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 - Social History Smoking Status: Never smoker Smokeless Tobacco Status: No Alcohol use: Reports: none Drug use: Reports: none Physical Exam - General Limitations: no limitations General appearance: alert, in no apparent distress Course Vital Signs Temperature 98.1 F 03/05/19 14:24 Pulse Rate 88 03/05/19 14:24 Respiratory Rate 15 03/05/19 14:24 Blood Pressure 157/100 03/05/19 14:24 O2 Sat by Pulse Oximetry 98 03/05/19 14:24 Temperature 98.3 F 03/05/19 19:53 Pulse Rate 62 03/05/19 19:53 Respiratory Rate 17 03/05/19 19:53 Blood Pressure 154/87 03/05/19 19:53 O2 Sat by Pulse Oximetry 95 03/05/19 19:53 Oxygen Delivery Oxygen Delivery Room Air Medical Decision Making - Lab Data Result diagrams: 03/05/19 14:37 03/05/19 14:37 Lab Results 03/05/19 03/05/19 03/05/19 Range/Units 14:08 14:37 14:37 WBC 11.3 H (4.3-11.1) K/mcL RBC 4.04 (3.82-4.97) M/mcL Hgb 13.1 (11.5-15.4) g/dL Hct 39.8 (35.3-44.9) % MCV 98.5 (83.0-100.0) fL MCH 32.4 (28.0-33.3) pg MCHC 32.9 (31.6-35.5) g/dL RDW 12.2 (11.5-14.5) % Plt Count 169 (140-400) K/mcL MPV 11.6 (9.4-12.4) fL Immature Gran % 0.4 (0-4) % Seg Neutrophils % 84.4 % Lymphocytes % 6.6 % Monocytes % 7.5 % Eosinophils % 0.8 % Basophils % 0.3 % Neutrophils # 9.5 H (1.6-8.9) K/mcL Lymphocytes # 0.8 (0.6-4.6) K/mcL Monocytes # 0.9 (0.0-1.3) K/mcL Eosinophils # 0.1 (0.0-0.6) K/mcL Basophils # 0.0 (0.0-0.2) K/mcL Sodium 138 (136-145) mEq/L Potassium 4.1 (3.5-5.1) mEq/L Chloride 104 (98-107) mEq/L Carbon Dioxide 25 (23-29) mEq/L BUN 20 (6-20) mg/dL Creatinine 1.12 (0.60-1.20) mg/dL Est GFR ( Amer) > 60 (> 60) Est GFR (Non-Af Amer) 52 L (> 60) BUN/Creatinine Ratio 18 (6-26) Glucose 121 H (70-105) mg/dL Calculated Osmolality 290 (280-300) Calcium 9.4 (8.6-10.3) mg/dL Urine Color Yellow (Yellow) Urine Clarity Turbid A (Clear) Urine pH 6.0 (5.0-8.0) pH Units Ur Specific [place] 1.017 (1.010-1.025) Urine Protein 100 H (Neg-Trace) mg/dL Urine Glucose (UA) Normal (Normal) mg/dL Urine Ketones Trace H (Negative) mg/dL Urine Blood Large H (Negative) Urine Nitrite Positive A (Negative) Urine Bilirubin Negative (Negative) Urine Urobilinogen Normal (Normal) mg/dL Ur Leukocyte Esterase Large H (Negative) Urine Microscopic RBC 30-50 H (0-3) per hpf Urine Microscopic WBC TNTC H (0-3) per hpf Ur Squamous Epith Cells Many H (None-Few) per lpf Urine Bacteria Many H (None-Few) per hpf Hyaline Casts None Seen (None-Few) per lpf Ur Culture Indicated? YES A (NO) Attestation Statement - Attestation Attestation: I have seen this patient with the resident physician, I have personally e valuated this patient. I had reviewed the chart and document dictation by the resident physician and aM in agreement with the information documented by the resident physician. Please see documentation by the resident physician for complete chart including past medical history, family medical history, review of systems, current history and physical and laboratory and imaging studies. I was present for all procedures, provided direct supervision for all procedures, was present for the entirety of all procedures and provided direct guidance during the procedures. Please see documentation by the resident physician for any procedures performed. I have reviewed all interpretations of EKGs, and reviewed all EKGs performed on patient's as well. I have also reviewed reports of imaging as provided by radiology. Patient presented emergency department with chief complaint of flank pain signif icant worsening. On exam she was uncomfortable with CVA tenderness, she was found to have evidence for significant UTI, laboratory studies otherwise within acceptable limits CT scan showed right-sided hydro-ureter, with staghorn calculus. No obvious pyelonephritis by CT. Secondary to hydroureter, staghorn calculus, with UTI, IV antibiotics were started to cover organisms such as Proteus and Klebsiella, urology was consult is requested admission to the hospitalist urology will see the patient has an inpatient. Patient was admitted for further evaluation and management.
[2019-03-06 05:34] LABS: Basophils % 0.3 %; Eosinophils # 0.1 K/mcL (0.0-0.6); Eosinophils % 1.1 %; Hematocrit 34.7 % (35.3-44.9); Immature Granulocytes % 0.3 % (0-4); Mean Corpuscular HGB Conc 32.6 g/dL (31.6-35.5); Mean Corpuscular Hemoglobin 32.6 pg (28.0-33.3); Mean Platelet Volume 11.7 fL (9.4-12.4); Monocytes # 0.6 K/mcL (0.0-1.3); Neutrophils # 4.7 K/mcL (1.6-8.9); Platelet Count 140 K/mcL (140-400); Red Blood Count 3.47 M/mcL (3.82-4.97); Red Cell Distribution Width 12.1 % (11.5-14.5); Segmented Neutrophils % 72.3 %; White Blood Count 6.4 K/mcL (4.3-11.1)
[2019-03-06 05:35] LABS: Hemoglobin 11.3 g/dL (11.5-15.4)
[2019-03-06 05:41] LABS: INR 1.3; Prothrombin Time 14.5 Seconds (9.4-12.1)
[2019-03-06 05:44] LABS: Activated Partial Thrombo Time 32.3 Seconds (26.0-36.0)
[2019-03-06 05:55] LABS: BUN/Creatinine Ratio 18 (6-26); Blood Urea Nitrogen 12 mg/dL (6-20); Calcium 8.5 mg/dL (8.6-10.3); Carbon Dioxide 23 mEq/L (23-29); Chloride 108 mEq/L (98-107); Glucose 93 mg/dL (70-105); Osmolality,Calculated 285 (280-300); Potassium 3.5 mEq/L (3.5-5.1); Sodium 138 mEq/L (136-145); eGFR For African Americans > 60 (> 60); eGFR For Non-African Americans > 60 (> 60)
[2019-03-06] MEDS: Ketorolac 30 MG/ML VIAL IVP PRN (05:57)
[2019-03-06] MEDS ORDERED: D5% in 0.45% NACL w KCl 30 MEQ/1,000 ML MLS IVC SCH (07:45)
--- NOTE | 2019-03-06 08:38 | Urology - Consult Note ---
<Odalys Santos N - Last Filed: 03/06/19 08:36> Date of Encounter: 03/06/19 Time of Encounter: 07:40 - Assessment and Plan (1) Flank pain Current Visit: Yes Status: Acute (2) Staghorn renal calculus Current Visit: Yes Status: Acute Assessment and plan: Patient is a 48-year-old female who presents with a right staghorn renal calculus and mild hydronephrosis.. We discussed surgical risks and benefits, and patient verbalized understanding. Patient signed consent, and she is prepared undergo a cystoscopy and right ureteral stent placement with Dr. Pleitez. She is aware definitive stone extraction will require more than one procedure, and we will plan a staged stone extraction procedure as an outpatient. Patient will remain nothing by mouth. (3) UTI (urinary tract infection) Current Visit: Yes Status: Acute Assessment and plan: Patient is a 40-year-old female who presents with a urinary tract infection as well as a right staghorn renal calculus. Vital signs are stable and afebrile. White blood cell count and renal function are both reassuring. Urinalysis is nitrite positive. Urine culture has been collected and is pending. Patient is receiving IV Rocephin. Qualifiers: Urinary tract infection type: acute cystitis Hematuria presence: with hematuria Qualified Code(s): N30.01 - Acute cystitis with hematuria Urology CN:HPI Consult date: 03/06/19 Reason for consult Urology: Other (right renal stone; UTI) Requesting physician: Isadora Marcos History of present illness: Patient is a 48-year-old female who presents with a right staghorn renal calculus and urinary tract infection. Patient reports a three-day history of right flank pain, gross hematuria, dysuria, and nausea. Patient has a known history of hyperparathyroidism and recurrent renal stones, and she most recently underwent a left ureteroscopy with Dr. Magana in March 2017. Patient presented to the emergency department where she underwent a CT of the abdomen and pelvis revealing a 1 cm right staghorn renal stone and mild hydronephrosis. Patient denies any known family history of renal stones. Currently, patient is sitting upright in bed in no apparent distress, and she reports voiding without difficulty. Patient denies fever or chills. Past Med Surg Social Fam HX - Past Medical History Medical history: kidney stones, thyroid disease Additional medical history: Psoriasis Psychiatric history: no psych history - Past Surgical History Surgical History: cholecystectomy, hysterectomy Additional surgical history: Tubal. Bilateral carpal tunnel. parathyroid - Social History Smoking Status: Never smoker Smokeless Tobacco Status: No Alcohol use: none Drug use: none - Family History Father Living Status: Still Living Mother Living Status: Still Living Medications and Allergies Cholecalciferol (D-3) [Vitamin D] 5,000 unit PO DAILY 08/29/18 [History] Allergy/AdvReac Type Severity Reaction Status Date / Time chocolate flavor AdvReac See Verified 03/06/19 10:55 Comments Review of Systems - Constitutional no chills, no fatigue, no fever(s) - EENT Nose, mouth and throat: no dizziness, no headache(s) - Cardiovascular no chest pain, no diaphoresis, no dyspnea - Respiratory no cough, no dyspnea - Gastrointestinal abdominal pain, nausea, no vomiting - Genitourinary Genitourinary: dysuria, flank pain, hematuria, no difficulty urinating, no urinary frequency, no urinary hesitancy, no urinary incontinence, no urinary urgency - Musculoskeletal back pain, no muscle weakness - Integumentary no erythema, no rash - Neurological no confusion, no syncope - Psychiatric no anxiety, no confusion - Hematologic/Lymphatic no easy bleeding, no easy bruising - Allergic/Immunologic no throat swelling, no wheezing Exam Initial Vital Signs Temp Pulse Resp BP Pulse Ox 98.1 F 88 15 157/100 98 03/05/19 14:24 03/05/19 14:24 03/05/19 14:24 03/05/19 14:24 03/05/19 14:24 - General physical appearance Present: well developed, no distress, no pain - Eyes Present: PERRL, normal ocular movement - ENT Present: normal nares, no hearing loss, no congestion - Neck Present: no masses, trachea midline, no lymphadenopathy - Respiratory Present: normal respiratory effort - Cardiovascular Cardiovascular exam IM: RRR - Abdomen Abdomen: Present: soft, non tender. Absent: distended - Genitourinary Present: other (No CVAT) - Integumentary Present: no rash, no abnormal pigmentation - Neurologic Present: normal coordination - Musculoskeletal Present: other (Normal posture) Urology Results - Labs 03/06/19 05:06 03/06/19 05:06 Abnormal lab results WBC 11.3 K/mcL (4.3-11.1) H 03/05/19 14:37 RBC 3.47 M/mcL (3.82-4.97) L 03/06/19 05:06 Hgb 11.3 g/dL (11.5-15.4) L D 03/06/19 05:06 Hct 34.7 % (35.3-44.9) L 03/06/19 05:06 Neutrophils # 9.5 K/mcL (1.6-8.9) H 03/05/19 14:37 PT 14.5 Seconds (9.4-12.1) H 03/06/19 05:06 Chloride 108 mEq/L (98-107) H 03/06/19 05:06 Est GFR (Non-Af Amer) 52 (> 60) L 03/05/19 14:37 Glucose 121 mg/dL (70-105) H 03/05/19 14:37 Calcium 8.5 mg/dL (8.6-10.3) L 03/06/19 05:06 Urine Clarity Turbid (Clear) A 03/05/19 14:08 Urine Protein 100 mg/dL (Neg-Trace) H 03/05/19 14:08 Urine Ketones Trace mg/dL (Negative) H 03/05/19 14:08 Urine Blood Large (Negative) H 03/05/19 14:08 Urine Nitrite Positive (Negative) A 03/05/19 14:08 Ur Leukocyte Esterase Large (Negative) H 03/05/19 14:08 Urine Microscopic RBC 30-50 per hpf (0-3) H 03/05/19 14:08 Urine Microscopic WBC TNTC per hpf (0-3) H 03/05/19 14:08 Ur Squamous Epith Cells Many per lpf (None-Few) H 03/05/19 14:08 Urine Bacteria Many per hpf (None-Few) H 03/05/19 14:08 Ur Culture Indicated? YES (NO) A 03/05/19 14:08 Diabetes panel 03/05/19 03/06/19 Range/Units 14:37 05:06 Sodium 138 138 (136-145) mEq/L Potassium 4.1 3.5 (3.5-5.1) mEq/L Chloride 104 108 H (98-107) mEq/L Carbon Dioxide 25 23 (23-29) mEq/L BUN 20 12 (6-20) mg/dL Creatinine 1.12 0.68 (0.60-1.20) mg/dL Glucose 121 H 93 (70-105) mg/dL Calcium 9.4 8.5 L (8.6-10.3) mg/dL Calcium panel 03/05/19 03/06/19 Range/Units 14:37 05:06 Calcium 9.4 8.5 L (8.6-10.3) mg/dL Pituitary panel 03/05/19 03/06/19 Range/Units 14:37 05:06 Sodium 138 138 (136-145) mEq/L Potassium 4.1 3.5 (3.5-5.1) mEq/L Chloride 104 108 H (98-107) mEq/L Carbon Dioxide 25 23 (23-29) mEq/L BUN 20 12 (6-20) mg/dL Creatinine 1.12 0.68 (0.60-1.20) mg/dL Glucose 121 H 93 (70-105) mg/dL Calcium 9.4 8.5 L (8.6-10.3) mg/dL Adrenal panel 03/05/19 03/06/19 Range/Units 14:37 05:06 Sodium 138 138 (136-145) mEq/L Potassium 4.1 3.5 (3.5-5.1) mEq/L Chloride 104 108 H (98-107) mEq/L Carbon Dioxide 25 23 (23-29) mEq/L BUN 20 12 (6-20) mg/dL Creatinine 1.12 0.68 (0.60-1.20) mg/dL Glucose 121 H 93 (70-105) mg/dL Calcium 9.4 8.5 L (8.6-10.3) mg/dL All other labs normal. - Imaging CT scan - abdomen: report reviewed, image reviewed CT scan - pelvis: report reviewed, image reviewed Consult Discharge Plan - Plan Referrals: NONE,PCP [Primary Care Provider] - <Kaden Pleitez - Last Filed: 03/06/19 14:57> Date of Encounter: 03/06/19 - Assessment and Plan (1) Staghorn renal calculus Current Visit: Yes Status: Acute Assessment and plan: Patient with large right renal stone. Patient seen and examined independently. Agree with the plan as written by Odalys Santos. Patient was taken to the operating today for cystoscopy and right ureteral stent placement. (2) UTI (urinary tract infection) Current Visit: Yes Status: Acute Qualifiers: Urinary tract infection type: acute cystitis Hematuria presence: with hematuria Qualified Code(s): N30.01 - Acute cystitis with hematuria Exam Initial Vital Signs Temp Pulse Resp BP Pulse Ox 98.1 F 88 15 157/100 98 03/05/19 14:24 03/05/19 14:24 03/05/19 14:24 03/05/19 14:24 03/05/19 14:24 Urology Results - Labs 03/06/19 05:06 03/06/19 05:06 Abnormal lab results WBC 11.3 K/mcL (4.3-11.1) H 03/05/19 14:37 RBC 3.47 M/mcL (3.82-4.97) L 03/06/19 05:06 Hgb 11.3 g/dL (11.5-15.4) L D 03/06/19 05:06 Hct 34.7 % (35.3-44.9) L 03/06/19 05:06 Neutrophils # 9.5 K/mcL (1.6-8.9) H 03/05/19 14:37 PT 14.5 Seconds (9.4-12.1) H 03/06/19 05:06 Chloride 108 mEq/L (98-107) H 03/06/19 05:06 Est GFR (Non-Af Amer) 52 (> 60) L 03/05/19 14:37 Glucose 121 mg/dL (70-105) H 03/05/19 14:37 Calcium 8.5 mg/dL (8.6-10.3) L 03/06/19 05:06 Urine Clarity Turbid (Clear) A 03/05/19 14:08 Urine Protein 100 mg/dL (Neg-Trace) H 03/05/19 14:08 Urine Ketones Trace mg/dL (Negative) H 03/05/19 14:08 Urine Blood Large (Negative) H 03/05/19 14:08 Urine Nitrite Positive (Negative) A 03/05/19 14:08 Ur Leukocyte Esterase Large (Negative) H 03/05/19 14:08 Urine Microscopic RBC 30-50 per hpf (0-3) H 03/05/19 14:08 Urine Microscopic WBC TNTC per hpf (0-3) H 03/05/19 14:08 Ur Squamous Epith Cells Many per lpf (None-Few) H 03/05/19 14:08 Urine Bacteria Many per hpf (None-Few) H 03/05/19 14:08 Ur Culture Indicated? YES (NO) A 03/05/19 14:08 Diabetes panel 03/05/19 03/06/19 Range/Units 14:37 05:06 Sodium 138 138 (136-145) mEq/L Potassium 4.1 3.5 (3.5-5.1) mEq/L Chloride 104 108 H (98-107) mEq/L Carbon Dioxide 25 23 (23-29) mEq/L BUN 20 12 (6-20) mg/dL Creatinine 1.12 0.68 (0.60-1.20) mg/dL Glucose 121 H 93 (70-105) mg/dL Calcium 9.4 8.5 L (8.6-10.3) mg/dL Calcium panel 03/05/19 03/06/19 Range/Units 14:37 05:06 Calcium 9.4 8.5 L (8.6-10.3) mg/dL Pituitary panel 03/05/19 03/06/19 Range/Units 14:37 05:06 Sodium 138 138 (136-145) mEq/L Potassium 4.1 3.5 (3.5-5.1) mEq/L Chloride 104 108 H (98-107) mEq/L Carbon Dioxide 25 23 (23-29) mEq/L BUN 20 12 (6-20) mg/dL Creatinine 1.12 0.68 (0.60-1.20) mg/dL Glucose 121 H 93 (70-105) mg/dL Calcium 9.4 8.5 L (8.6-10.3) mg/dL Adrenal panel 03/05/19 03/06/19 Range/Units 14:37 05:06 Sodium 138 138 (136-145) mEq/L Potassium 4.1 3.5 (3.5-5.1) mEq/L Chloride 104 108 H (98-107) mEq/L Carbon Dioxide 25 23 (23-29) mEq/L BUN 20 12 (6-20) mg/dL Creatinine 1.12 0.68 (0.60-1.20) mg/dL Glucose 121 H 93 (70-105) mg/dL Calcium 9.4 8.5 L (8.6-10.3) mg/dL All other labs normal.
[2019-03-06] MEDS ORDERED: cefTRIAXone 1,000 MG in Water for inj. (sterile) 10 ML IVPB SCH (09:00)
--- NOTE | 2019-03-06 15:09 | Internal Med Progress Note ---
Hospitalist Progress Note - Encounter Date of Encounter: 03/06/19 Time of Encounter: 10:00 - Subjective Interval History: Ms Khan stated she started this new keto diet. She states that she has 3 out of 4 parathyroid glands. She is scheduled for urological intervention GEN: Denies fever, chills or malaise HEENT: Denies headache blurriness, or dysphagia RESP: Denies SOB or cough CV: Denies chest pain or palpitations GI: Denies Nausea, vomiting, diarrhea or constipation Reviewed current in hospital medications with modifications see orders Reviewed Routine labs - Exam Vitals: Temp Pulse Resp BP Pulse Ox 98.0 F 59 16 124/73 98 03/06/19 14:15 03/06/19 14:15 03/06/19 14:15 03/06/19 14:15 03/06/19 14:15 Exam: GEN: NAD, A&O x 3, Pleasant and conversant SKIN: [place] warm acyanotic not jaundice HEART: RRR, no murmurs LUNGS: CTA no wheeze or crackles, overall non labored ABDOMEN; Soft, non tender or distended, BS x 4 normactive, slight costal vertebral angle tenderness EXT: No LE edema, Pedal pulses 1+, radial pulses 2+ PSYCH: Mood and affect is appropriate - Assessment and Plan (1) Flank pain Current Visit: Yes Status: Acute Assessment and Plan: due to nephrolithiasis, pain is tolerable (2) Staghorn renal calculus Current Visit: Yes Status: Acute Assessment and Plan: She is on ceftriaxone she is scheduled for urological intervention. Discussed with patient regarding possible dietary correlation given her new KETO diet, her stated chronicity of the calculus. Back concerning for possible cystine induced as such she could experiment on a restricted protein diet of 1 g per KG per day, reduce a sodium intake and increase her fluid intake. Dietary has been consulted, discussed with patient (3) Hematuria Current Visit: Yes Status: Acute Assessment and Plan: Secondary to staghorn calculus UA reveals large blood patient admits to hematuria, hemoglobin trended down from 13.1 on admission of 11.3. We will trend CBC hopefully with urological intervention should be addressed (4) Acute blood loss anemia Current Visit: Yes Status: Acute Assessment and Plan: Secondary to hematuria hemoglobin is 11.3 down from 13.1 vitals stable (5) UTI (urinary tract infection) Current Visit: Yes Status: Acute Assessment and Plan: Cultures pending continue ceftriaxone (6) Primary hyperparathyroidism Current Visit: No Status: Acute Assessment and Plan: She has 3 out of 4 parathyroid glands, serum calcium today is 8.5 DVT Prophylaxis: SCDs - Time Spent with Patient Total time spent is greater than 50% in coordination of care (as documented) at patient's floor/unit and/or counseling patient: Internal Medicine: Result - Labs CBC & Chem 7: 03/06/19 05:06 03/06/19 05:06 Labs: Short CBC 03/05/19 03/06/19 Range/Units 14:37 05:06 WBC 11.3 H 6.4 (4.3-11.1) K/mcL Hgb 13.1 11.3 L D (11.5-15.4) g/dL Hct 39.8 34.7 L (35.3-44.9) % Plt Count 169 140 (140-400) K/mcL Neutrophils # 9.5 H 4.7 (1.6-8.9) K/mcL BMP 03/05/19 03/06/19 14:37 05:06 Sodium 138 138 Potassium 4.1 3.5 Chloride 104 108 H Carbon Dioxide 25 23 BUN 20 12 Creatinine 1.12 0.68 Glucose 121 H 93 Calcium 9.4 8.5 L Urine 03/05/19 Range/Units 14:08 Urine Color Yellow (Yellow) Urine Clarity Turbid A (Clear) Urine pH 6.0 (5.0-8.0) pH Units Ur Specific [place] 1.017 (1.010-1.025) Urine Protein 100 H (Neg-Trace) mg/dL Urine Glucose (UA) Normal (Normal) mg/dL - ABG Interpretation ABG results: PT/INR, D-dimer PT 14.5 Seconds (9.4-12.1) H 03/06/19 05:06 - Impressions Impressions Abdomen/Pelvis CT 03/05/19 16:43 IMPRESSION: 1. Bilateral nephrolithiasis. A staghorn type calculus in the right renal pelvis measures 1.2 x 0.5 cm. 2. There is evidence of mild right hydroureter but no evidence of ureteric stones. The urinary bladder demonstrates no evidence of stones or thickening. 3. Normal appendix and gastrointestinal tract. Status post gastric bypass. D/ / 03/05/2019 17:28:26 Rafia Guevara MD / addison Interpreting Provider: Rafia Guevara MD Consult Discharge Plan - Plan Referrals: NONE,PCP [Primary Care Provider] - ____ (5) UTI (urinary tract infection) Qualifiers: Urinary tract infection type: acute cystitis Hematuria presence: with hematuria Qualified Code(s): N30.01 - Acute cystitis with hematuria
--- NOTE | 2019-03-06 16:36 | Anesthesia Evaluation PreOp ---
Date of Encounter: 03/06/19 Time of Encounter: 16:34 - Past History Planned Operation: Cystoscopy R-stent Cardiac History: Denies any Significant Hx Pulmonary History: Denies Any Significant HX WEB USER EXPERIENCE STRATEGIST History: Denies Any Significant HX Other Medical History: Other (Hx hyperparathyroidism) Anesthesia History: No Prior Anesthetic Complications, Past Anesthesia (Parathyroidectomy 08/2018, [facility], Tubal, JORJE, B-CTR, Kidney stones, Bariatric sx) Alcohol Use: none Drug use: none Medications and Allergies Cholecalciferol (D-3) [Vitamin D] 5,000 unit PO DAILY 08/29/18 [History] Allergy/AdvReac Type Severity Reaction Status Date / Time chocolate flavor AdvReac See Verified 03/06/19 10:55 Comments - Meds/Allergy Pre-op Review Medications Reviewed: Yes Allergies Reviewed: Yes Beta Blockers on Current Med List: No Anesthesia Results - Labs 03/06/19 05:06 03/06/19 05:06 Impressions Abdomen/Pelvis CT 03/05/19 16:43 IMPRESSION: 1. Bilateral nephrolithiasis. A staghorn type calculus in the right renal pelvis measures 1.2 x 0.5 cm. 2. There is evidence of mild right hydroureter but no evidence of ureteric stones. The urinary bladder demonstrates no evidence of stones or thickening. 3. Normal appendix and gastrointestinal tract. Status post gastric bypass. D/ / 03/05/2019 17:28:26 Rafia Guevara MD / addison Interpreting Provider: Rafia Guevara MD Anesthesia Exam Vital Signs Temp Pulse Resp BP Pulse Ox 03/06/19 14:15 98.0 F 59 16 124/73 98 03/06/19 11:19 98.1 F 61 16 131/86 95 03/06/19 06:07 98.1 F 75 16 128/77 96 03/06/19 04:01 98.3 F 69 17 119/80 97 03/05/19 23:08 98.3 F 64 17 133/78 96 03/05/19 19:53 98.3 F 62 17 154/87 95 03/05/19 19:31 78 18 150/87 98 03/05/19 17:48 68 16 133/87 98 03/05/19 16:52 73 18 163/97 100 Intake and Output 03/06/19 03/06/19 03/06/19 07:59 15:59 23:59 Intake Total 887 / 1549 662 / 1549 Balance 887 / 1549 662 / 1549 Intake: IV Fluids 887 / 1549 662 / 1549 0.9 % Sodium Chloride 1,000 ML 877 / 877 @ 125 mls/hr IVC .Q8H [facility] Rx#: [id number] KCl 30mEq in D5-0.45 NaCl 30 662 / 662 meq In 1,000 ml @ 125 mls/hr IVC .Q8H [facility] Rx#:[id number] Rocephin 1,000 MG In Water for inj. (sterile) 10 ML @ 600 mls/ hr IVPB DAILY [facility] Rx#: [id number] Other: Meal npo # Voids 1 1 Weight 85.4 kg Blood Glucose* 100 115 Patient Weight 03/06/19 23:59 Weight 85.4 kg Height: 5'7" Weight: 188# BMI= 29.5 NPO (# of Hours): MNOc - HEENT Pupil (Motor): Pupils equal, EOMI Mallampati: I Teeth: Normal Oral Opening: Greater than 3 - WEB USER EXPERIENCE STRATEGIST LOC: Oriented WEB USER EXPERIENCE STRATEGIST Motor: Normal RUE, Normal LUE, Normal RLE, Normal LLE, Normal Face WEB USER EXPERIENCE STRATEGIST Sensory: Normal: RUE, LUE, RLE, LLE, Face - Cardiac Rhythm: Regular Murmur: None - Pulmonary Breath Sounds: bilateral Clear Anesthesia Assess/Plan ASA Score: 2 Level of consciousness: Cooperative, Oriented, Tranquil Anesthetic Plan: General Autologous Blood: Yes Recovery Plan: PACU Anes Supervising Prov Stmt: Pt seen/evaluated, R&B Discussed, questions answered and consent obtained. Asher Gerard MD
[2019-03-06] MEDS ORDERED: Acetaminophen IV 1,000 MG/100 ML INFUS..BTL ONE (16:56)
[2019-03-06] MEDS ORDERED: Acetaminophen IV 1,000 MG/100 ML INFUS..BTL IVPB ONE (16:59)
[2019-03-06] MEDS ORDERED: *HR* FentaNYL (PF) 100 MCG/2 ML VIAL ONE (17:04)
[2019-03-06] MEDS ORDERED: Lidocaine -MPF 2% 2 ML VIAL ONE (17:04)
[2019-03-06] MEDS ORDERED: *HR* Propofol 200 MG/20 ML VIAL IVP ONE (17:04)
[2019-03-06] MEDS ORDERED: Ondansetron 4 MG/2 ML VIAL ONE (17:04)
--- NOTE | 2019-03-06 17:07 | Operative Note ---
Date of procedure: 03/06/19 Pre-op diagnosis: right kidney stone with uti Post-op diagnosis: same Procedure: Cystoscopy and right 4.8 x 26 cm ureteral stent placement Anesthesia: GETA Surgeon: Kaden Pleitez Was there an psychological assistant present: No Estimated blood loss (cc): 0 Specimen: none Condition: stable Disposition: PACU Procedure in Detail: Patient was prepped and draped in normal sterile fashion. Timeout procedure performed. I then introduced the cystoscope in the patient's bladder. Patient's bladder was markedly erythematous consistent with her UTI. I then was able to cannulate the right ureteral orifice using a sensor wire. I then was able to place a 4.8 x 26 cm stent with good curl seen in the kidney and in the bladder. The right proximal ureteral/renal pelvis stone was easily seen on the fluoroscopy images. Bladder was drained and procedure was ended.
[2019-03-06] MEDS ORDERED: Ketorolac 30 MG/ML VIAL ONE (17:11)
[2019-03-06] MEDS ORDERED: Naloxone 0.4 MG/ML INJ IVP PRN (17:56)
[2019-03-06] MEDS ORDERED: Ondansetron 4 MG/2 ML VIAL IVP PRN (17:56)
--- NOTE | 2019-03-06 18:01 | Anesthesia Evaluation Post Op ---
Date of Encounter: 03/06/19 Time of Encounter: 17:40 - Vital Signs Vital Signs: Vital Signs/O2 Sat, Most Current Temp Pulse Resp BP Pulse Ox 98.4 F 55 14 114/71 95 03/06/19 17:45 03/06/19 17:45 03/06/19 17:45 03/06/19 17:45 03/06/19 17:45 - Lungs Lungs: Clear Ascult./Percussion - Airway Airway: Non-obstructed - Cardiovascular Regular Rate - Mental Status Mental Status: Alert & Oriented, Answers Appropriately - Pain Pain Scale: 0 Pain Scale used: Numeric (1 - 10) - Nausea Vomiting Nausea Vomiting: Not Present - Hydration Hydration: Ice chips, Has not voided - Discharge PostOp Status: Transfer Patient to floor
[2019-03-06] MEDS: D5% in 0.45% NACL w KCl 30 MEQ/1,000 ML MLS IVC SCH (21:09)
[2019-03-07] MEDS: D5% in 0.45% NACL w KCl 30 MEQ/1,000 ML MLS IVC SCH (06:08)
--- NOTE | 2019-03-07 07:44 | Urology Progress Note ---
Date of Encounter: 03/07/19 Time of Encounter: 07:43 - Assessment and Plan (1) Staghorn renal calculus Current Visit: Yes Status: Acute Assessment and plan: Patient's is post right ureteral stent placement yesterday. Continue stent at this time. Patient will be scheduled for right ESWL in the next 2-3 weeks. (2) UTI (urinary tract infection) Current Visit: Yes Status: Acute Assessment and plan: Patient will need to continue with broad-spectrum antibiotics until cultures return. Recommend 7 days of antibiotics after culture returns. Qualifiers: Urinary tract infection type: acute cystitis Hematuria presence: with hematuria Qualified Code(s): N30.01 - Acute cystitis with hematuria Progress Note Narrative: Patient seen this morning. Patient feeling much better. Status post ureteral stent placement yesterday. Urine culture pending. Objective Initial Vital Signs Temp Pulse Resp BP Pulse Ox 98.1 F 88 15 157/100 98 03/05/19 14:24 03/05/19 14:24 03/05/19 14:24 03/05/19 14:24 03/05/19 14:24 - General physical appearance Present: well developed, well nourished - Abdomen Present: soft. Absent: tender - Integumentary Present: no rash, no abnormal pigmentation - Labs 03/06/19 05:06 03/06/19 05:06 Consult Discharge Plan - Plan Referrals: Kaden Pleitez MD [Partnered Physician] - Karolina Bell CNP [Advanced Practice Nurse] -
[2019-03-07] MEDS ORDERED: cefTRIAXone 1,000 MG in Water for inj. (sterile) 10 ML IVPB SCH (09:00)
--- NOTE | 2019-03-07 11:59 | Discharge Summary ---
Orders not resulted at time of discharge: Pending orders 03/05/19 20:17 Culture,Blood [BC] Routine Date of Encounter: 03/07/19 Time of Encounter: 11:53 - Discharge Diagnosis (1) Primary hyperparathyroidism Priority: Secondary Status: Chronic (2) UTI (urinary tract infection) Priority: Primary Status: Acute Qualifiers: Urinary tract infection type: acute cystitis Hematuria presence: with hematuria Qualified Code(s): N30.01 - Acute cystitis with hematuria (3) Staghorn renal calculus Priority: Primary Status: Acute (4) Flank pain Priority: Secondary Status: Acute (5) Hematuria Priority: Secondary Status: Resolved Qualifiers: Hematuria type: unspecified type Qualified Code(s): R31.9 - Hematuria, unspecified (6) Acute blood loss anemia Priority: Secondary Status: Chronic Hospital course: Ms. Khan is a 48 year old female history of primary parathyroidism s/p parathyroidectomy and recurrent kidney stones who has previously undergone left laser lithotripsy, basket stone extraction and stent placement for an 8mm calculus. Patient presented to the ED due to dysuria, suprapubic discomfort, pat ient also reported supra-pubic pain noticed hematuria and complains of some nausea but no vomiting, fever or chills. Patient was admitted to the hospital due to UTI, abdominal pain secondary to kidney stone. A CT abd pelvis wo no iv no oral IMPRESSION: Bilateral nephrolithiasis. A staghorn type calculus in the right renal pelvis measures 1.2 x 0.5 cm. 2. There is evidence of mild right hydroureter but no evidence of ureteric stones. The urinary bladder demonstrates no evidence of stones or thickening. 3. Normal appendix and gastrointestinal tract. Status post gastric bypass. Patient was managed with IV hydration, IV antibiotics and urology consult. Patient underwent: Cystoscopy and right 4.8 x 26 cm ureteral stent placement. UC: Grew ambrose-sensitive e.coli. patient acute symptoms significantly improve and patient is hemodynamically stable to be discharged home on oral antibiotic and pain medications. Patient recommended to follow up with Urology within 1-2 weeks of hospital discharged. - Time Spent with Patient Total time spent providing and/or coordinating discharge services: Time spent: Greater than 30 minutes (35) - Discharge Medications Prescriptions: New Amoxicillin/Clavulanate [Augmentin] 875 mg PO BIDWM 7 Days #14 tablet OxyCODONE/APAP 5/325 [Percocet 5/325 MG] 1 each PO Q6HR PRN 7 Days #15 tablet PRN Reason: Pain Continued Cholecalciferol (D-3) [Vitamin D] 5,000 unit PO DAILY Home Medications: Cholecalciferol (D-3) [Vitamin D] 5,000 unit PO DAILY 08/29/18 [History] Amoxicillin/Clavulanate [Augmentin] 875 mg PO BIDWM 7 Days #14 tablet 03/07/19 [Rx] OxyCODONE/APAP 5/325 [Percocet 5/325 MG] 1 each PO Q6HR PRN 7 Days #15 tablet 03/07/19 [Rx] Allergies/Adverse Reactions: Allergy/AdvReac Type Severity Reaction Status Date / Time chocolate flavor AdvReac See Verified 03/06/19 10:55 Comments Date of admission: 03/05/19 18:54 Primary care physician: PCP NONE Consults: 03/05/19 18:31 Consult to Urology [CONS] Stat Consulting Provider: Urology Katya Reason for Consult: infected staghorn, spoke with Dr. 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 In no distress Skin: Normal color, no rash, no lesions. HEENT: EOM, pupils equal, round and reactive. Cardiovascular: RRR, normal S1 & S2, no rubs, murmurs or gallops. Lungs: CTA b/l, no wheezes or crackles. Abdomen:Soft, mild tenderness to deep palpation LLQ, no rigidity or guarding. Extremities: No deformity, no edema or tenderness, no joint swelling or clubbing. Neurological: Normal cognition and motor skills. Rest of the physical exam is non contributory - Patient Status Disposition: Home, Self-Care Condition: Good Functional capacity at discharge: independent ambulation Overall status at discharge: patient is progressing back to baseline - Discharge Instructions Follow Up With: Kaden Pleitez MD [Partnered Physician] - Karolina Bell CNP [Advanced Practice Nurse] - - Diet and Activity Activity: resume usual activities as tolerated Diet: low salt diet
[2019-03-07 13:41] VITALS: BP 121/74
[2019-03-07] MEDS ORDERED: *HR* Heparin 5,000 UNIT/ML VIAL SQ SCH (18:00)
== END 2019-03-07 13:30 | disposition home or self-care (01) ==
LOC: EMEROOARM 14:16 → 3ANU 14:16 → SUATTDRO 18:54 → 3ANU 19:43
PROVIDERS: ADMIT Student in an Organized Health Care Education/Training Program; ATTEND Internal Medicine